=== PATIENT | male | born 1955 | race Caucasian/White ===

== ENCOUNTER 2019-09-02 20:00 | Inpatient (IN) | payer OTHER ==
[~2019-09-02] VITALS: Ht 180.3 cm; Wt 68.0 kg
--- NOTE | 2019-09-02 20:15 | NUR ---
[employer] AND [employer] UNDER CUSTODY FOR AMS , POSSIBLE DRUG OD.
--- NOTE | 2019-09-02 20:39 | NUR ---
ACCUCHECK-95. ERMD MADE AWARE
[2019-09-02] MEDS ORDERED: NALOXONE PREFILLED SYRINGE 2 MG/2 ML SYRINGE ONE ×2 (20:40→22:14)
--- NOTE | 2019-09-02 20:51 | NUR ---
URINE COLLECTED AND SENT TO THE LAB
--- NOTE | 2019-09-02 20:51 | NUR ---
X RAY AT THE BED SIDE
[2019-09-02] MEDS ORDERED: NALOXONE HCL 0.4 MG/ML AMPUL IV ONE ×2 (21:00→22:00)
[2019-09-02 21:03] LABS: APPEARANCE,URINE Clear (CLEAR); BILIRUBIN,URINE Negative (NEGATIVE); BLOOD, URINE Moderate Ery/uL (NEGATIVE); COLOR,URINE Yellow (YELLOW); KETONES,URINE Negative (NEGATIVE); LEUKOCYTE ESTERASE ,URINE Negative (NEGATIVE); NITRITE, URINE Negative (NEGATIVE); PH,URINE 7.5 (5.0-8.0); PROTEIN,URINE 30 mg/dl (NEGATIVE); UGLUCOSE 250 MG/DL mg/dL (NEGATIVE)
[2019-09-02 21:07] LABS: BACTERIA,URINE None seen /HPF (None Seen); SQUAMOUS EPITHELIAL CELL,UR Few /HPF (None Seen); WBC,URINE 0-2 /HPF (0-3)
--- NOTE | 2019-09-02 21:11 | NUR ---
LAB AT THE BED SIDE TO DRAW BLOOD
--- NOTE | 2019-09-02 21:22 | NUR ---
PT IN EBD SLEEPING, RESPONSIVE TO PAIN, REMAINED W/ [employer] AND CLOSE OBSERVATION. ON HEART MONITOR,
[2019-09-02 21:25] LABS: BASOPHILS % (AUTO) 0.3 % (0.0-2.0); EOSINOPHILS % (AUTO) 0.1 % (0.0-6.0); HEMATOCRIT 43 % (39-51); HEMOGLOBIN 13.9 g/dL (13.5-17.5); LYMPHOCYTES % (AUTO) 8.5 % (20.0-44.0); MEAN CORPUSCULAR HGB CONC 32 g/dl (31.0-36.0); MEAN CORPUSCULAR VOLUME 97 fL (80-96); MONOCYTES # (AUTO) 0.6 /CMM (0.1-1.30); MONOCYTES % (AUTO) 5.5 % (2.0-12.0); NEUTROPHILS # (AUTO) 10.1 /CMM (1.8-8.9); NEUTROPHILS % (AUTO) 85.6 % (43.0-81.0); PLATELET COUNT (AUTO) 332 /CMM (150-450); RED BLOOD CELL COUNT(AUTO) 4.43 MIL/uL (4.5-6.0); WHITE BLOOD COUNT (AUTO) 11.8 K/uL (4.3-11.0)
[2019-09-02 21:38] LABS: CALCIUM, SERUM 9.2 mg/dL (8.5-10.1); CARBON DIOXIDE 29 mmol/L (21-32); CHLORIDE 103 mmol/L (98-107); CREATININE 1.2 mg/dL (0.6-1.3); GLUCOSE 102 mg/dL (74-106); POTASSIUM 4.1 mmol/L (3.5-5.1); SODIUM SERUM 139 mmol/L (136-145); UREA NITROGEN, BLOOD 23 mg/dL (7-18)
[2019-09-02 21:44] LABS: ACETAMINOPHEN 0 ug/ml (10-30); ALANINE AMINOTRANSFERASE 47 U/L (12-78); ALBUMIN 3.5 g/dL (3.4-5.0); ALCOHOL, BLOOD < 3 mg/dL (0-0); ALKALINE PHOSPHATASE 120 U/L (46-116); ASPARTATE AMINOTRANSFERASE 115 U/L (15-37); BILIRUBIN,DIRECT 0.1 mg/dL (0.0-0.2); BILIRUBIN,TOTAL 0.4 mg/dL (0.2-1.0); SALICYLATE 1.2 mg/dL (2.8-20.0); TOTAL PROTEIN, SERUM 7.2 g/dL (6.4-8.2)
--- NOTE | 2019-09-02 23:02 | NUR ---
BED ASSIGNMENT 322-2
--- NOTE | 2019-09-02 23:14 | NUR ---
REPORT GIVEN TO GARRISON
--- NOTE | 2019-09-02 23:56 | NUR ---
PT WAS TRANSFERRED TO THE FLOOR IN STABLE CONDITION.
[2019-09-03] VITALS: BP 165/109
[2019-09-03] MEDS ORDERED: ONDANSETRON HCL/PF 4 MG/2 ML VIAL IVP PRN
[2019-09-03] MEDS ORDERED: Z GUARD REMEDY 2 OZ OINT TP PRN
[2019-09-03] MEDS ORDERED: MAGNESIUM HYDROXIDE 30 ML UDC PO PRN
[2019-09-03] MEDS ORDERED: hydrALAZINE HCL IV 20 MG VIAL IV PRN
[2019-09-03] MEDS ORDERED: MAG HYDROX/AL HYDROX/SIMETH 30 ML UDC PO PRN
[2019-09-03] MEDS ORDERED: ACETAMINOPHEN 325 MG TABLET PO PRN
--- NOTE | 2019-09-03 | NUR ---
[facility] CARDIAC CATH LAB MANAGER NOTES Received this patient 64 year-old male from ER via gurney accompanied by 1 ER staff and 2 police officers. Admitted to [facility] 322-2 due to rhabdomylosis and overdose under custody. Transferred to bed comfortably. Patient responsive to sternal rub only. On RA, no SOB/respiratory distress noted, saturating well at RA. No s/sx of discomfort noted at this time. Admission orders noted and carried out. Patient on bed clean, dry and comfortable. R hand cuffed to bed, police officers at bedside. Will continue to monitor accordingly.
[2019-09-03 00:30] VITALS: BP 165/109
[2019-09-03] MEDS: IV NS 0.9% 1,000 ML IV PRN ×3 (00:30→21:03)
[2019-09-03] MEDS: ENOXAPARIN SODIUM 40 MG/0.4 ML DISP.SYRIN SQ SCH ×2 (00:37→21:00)
--- NOTE | 2019-09-03 02:42 | NUR ---
MS RN NOTES Rechecked BP - 147/103mmHg. Patient asleep, responsive to sternal rub. No s/sx of discomfort noted at this time.
--- NOTE | 2019-09-03 05:51 | NUR ---
MS RN NOTES Patient fully awake. Able to recall some information. Patient claimed he was not aware of what happened why he was brought into the hospital. Offered fluids to patient, able to tolerate well. Notified household appliances salesperson MD with diet order changed from NPO to now regular diet. Noted and carried out. Offered snacks to patient.
--- NOTE | 2019-09-03 06:39 | NUR ---
MS RN CLOSING NOTES Patient asleep, easily awaken. On RA, no SOB/respiratory distress noted. Afebrile the whole shift, no new unusualities noted. All nursing needs attended, due meds given as ordered. Patient able to reposition self independently. Kept on bed clean, dry and comfortable. With 2 police officers at bedside. Patient's R hand cuffed to bedrails. On fall and aspiration precautions. Call light within easy reach. Endorsed.
[2019-09-03] MEDS: PANTOPRAZOLE 40 MG TABLET.DR PO SCH (07:30)
[2019-09-03 07:42] LABS: BASOPHILS # (AUTO) 0.1 /CMM (0.0-0.2); BASOPHILS % (AUTO) 0.7 % (0.0-2.0); EOSINOPHILS % (AUTO) 0.8 % (0.0-6.0); HEMATOCRIT 46 % (39-51); HEMOGLOBIN 15.3 g/dL (13.5-17.5); LYMPHOCYTES % (AUTO) 18.9 % (20.0-44.0); MEAN CORPUSCULAR HGB CONC 33 g/dl (31.0-36.0); MEAN CORPUSCULAR VOLUME 96 fL (80-96); MONOCYTES # (AUTO) 0.7 /CMM (0.1-1.30); MONOCYTES % (AUTO) 6.9 % (2.0-12.0); NEUTROPHILS # (AUTO) 7.6 /CMM (1.8-8.9); NEUTROPHILS % (AUTO) 72.7 % (43.0-81.0); PLATELET COUNT (AUTO) 332 /CMM (150-450); RED BLOOD CELL COUNT(AUTO) 4.78 MIL/uL (4.5-6.0); WHITE BLOOD COUNT (AUTO) 10.4 K/uL (4.3-11.0)
--- NOTE | 2019-09-03 07:55 | NUR ---
ms rn opening notes Patient received on room air, no sob noted, patient denies pain at this time. A/O x4 and is awake and answering questions now. Des with patient bedside at all times. Able to eat and swallow at this time. R wrist 19 with NS @ 150 ml per hour. Bed at the lowest setting, call light within reach, side rails up x2.
[2019-09-03 08:00] VITALS: BP 159/91
--- NOTE | 2019-09-03 09:41 | NUR ---
WOUND CARE CONSULT: PT PRESENTS WITH LEFT BACK ABRASION AND SURROUNDING DISCOLORATION, PRESENT ON ADMISSION. RECOMMENDATIONS MADE FOR SKIN PROTECTION AND WOUND CARE. DISCUSSED WITH NURSING STAFF. PT IS CONTINENT AND INDEPENDENT WITH BED MOBILITY. LAW ENFORCEMENT OFFICERS AT BEDSIDE. CURRENT MALIA SCORE IS 20. Addendum: 09/03/19 at 0942 by WILFRED CAMPOS WNDNU Amended: Links added.
[2019-09-03 10:03] LABS: ALBUMIN 2.9 g/dL (3.4-5.0); BILIRUBIN,TOTAL 0.5 mg/dL (0.2-1.0); CALCIUM, SERUM 8.5 mg/dL (8.5-10.1); CREATININE 1.3 mg/dL (0.6-1.3); MAGNESIUM 2.1 mg/dL (1.8-2.4); POTASSIUM 3.7 mmol/L (3.5-5.1); THYROID STIMULATING HORMONE 1.163 uIU/mL (0.358-3.74); TOTAL PROTEIN, SERUM 6.6 g/dL (6.4-8.2)
[2019-09-03 10:16] LABS: PHOSPHORUS 3.7 mg/dL (2.5-4.9)
[2019-09-03] MEDS ORDERED: LANS30CA56 PO (10:55)
[2019-09-03] MEDS ORDERED: CLOP75TA15 PO (10:55)
[2019-09-03] MEDS ORDERED: FLUT1DIS IH (10:55)
[2019-09-03] MEDS ORDERED: ZOLP5TAB8 PO (10:55)
[2019-09-03] MEDS ORDERED: VARD20TA31 PO (10:55)
[2019-09-03] MEDS ORDERED: LEVA15HF4 IH (10:55)
[2019-09-03] MEDS ORDERED: DOLU1TAB2 PO (10:55)
[2019-09-03] MEDS ORDERED: IBUP-1957 PO (10:59)
[2019-09-03] MEDS ORDERED: ALPR1TAB7 PO (10:59)
[2019-09-03 16:00] VITALS: BP 152/96
[2019-09-03] MEDS ORDERED: IV NS 0.9% 1,000 ML IV STA (16:31)
[2019-09-03] MEDS: LORAZEPAM INJ 2 MG/ML VIAL IV PRN ×2 (16:44→23:28)
--- NOTE | 2019-09-03 18:13 | NUR ---
rn closing notes Patient remains on room air, no sob noted, a/o x4. Patient denies pain at this time, and has laundry housekeeper with him bedside at all times. IV hydration ongoing, R wrist #18 @ 150 ml per hour of NS. Patient asleep but easily awakened at this time. Bed at the lowest setting, call light within reach, side rails up x2. Will give report to NOC RN for FREDRICK bedside.
--- NOTE | 2019-09-03 19:15 | NUR ---
RN PM OPENING NOTES BEDSIDE REPORT RECIEVED FROM COLLIN RN. PATIENT IS IN CUSTODY WITH OFFICERS AT THE BEDSIDE. PT ON RA IN NO APPARENT DISTRESS. PT DENIES PAIN. IV HYDRATION ONGOING TO RIGHT WRIST 18 GUAGE FINISHING UP BOLUS PER ORDERS AT 250 ML PER HOUR. TO RESUME AT NS AT 150 ML PER HOUR AFTER. BED LOW CALL LIGHT IN REACH SRX2
--- NOTE | 2019-09-03 19:53 | NUR ---
A DR. HARRINGTON FROM [facility] SENT RECENT MEDICAL RECORDS PER NOTES HIS CALL BACK NUMBER IS [phone] EXT 1 RECORDS ADDED TO CHART FOR RECORDS.
[2019-09-03 20:00] VITALS: BP 136/87
--- NOTE | 2019-09-03 21:04 | NUR ---
PATIENT OFFERED LOVENOX ORDERED PATIENT REFUSED. MEDICINE REVIEWED ORDERED MEDICATION WITH PATIENT AND ITS USE TO PREVENT BLOOD CLOTS WHILE HOSPITALIZED. REVIEWED THAT HE IS AT RISK A PATIENT. PATIENT REFUSING MEDICINE STATES, "NO I DON'T WANT ANY OF THAT. NO THANK YOU."
[2019-09-03] MEDS ORDERED: ALBUTEROL FS 2.5 MG/0.5 ML VIAL.NEB NEB PRN ×2 (23:15→23:30)
--- NOTE | 2019-09-03 23:28 | NUR ---
pt anxious, sob, new breathing treatment ordrs. pt sob has upper rep wheezing audible sitting at bedside with hands on knees states "i am having trouble breathing." maximiliano contacted shop director/md and new order for duoneb treatments recieved. rt informed states hew ill be here soon to see patient. patient is still anxious. spo2 is 95% rr is 24. patient is very anxious. pt given ativan as ordered prn per his request.
[2019-09-03] MEDS: IPRATROPIUM NEB FS 0.5 MG/2.5 ML AMPUL.NEB NEB SCH (23:52)
[2019-09-04] MEDS: IPRATROPIUM NEB FS 0.5 MG/2.5 ML AMPUL.NEB NEB SCH ×6 (03:28→23:07)
[2019-09-04] MEDS: IV NS 0.9% 1,000 ML IV PRN ×3 (06:21→22:52)
[2019-09-04 07:27] LABS: BASOPHILS # (AUTO) 0.1 /CMM (0.0-0.2); BASOPHILS % (AUTO) 1.1 % (0.0-2.0); EOSINOPHILS % (AUTO) 2.2 % (0.0-6.0); HEMATOCRIT 43 % (39-51); HEMOGLOBIN 13.8 g/dL (13.5-17.5); LYMPHOCYTES # (AUTO) 2.3 /CMM (0.8-4.8); LYMPHOCYTES % (AUTO) 24.8 % (20.0-44.0); MEAN CORPUSCULAR HGB CONC 33 g/dl (31.0-36.0); MEAN CORPUSCULAR VOLUME 97 fL (80-96); MONOCYTES # (AUTO) 0.9 /CMM (0.1-1.30); MONOCYTES % (AUTO) 9.6 % (2.0-12.0); NEUTROPHILS # (AUTO) 5.7 /CMM (1.8-8.9); NEUTROPHILS % (AUTO) 62.3 % (43.0-81.0); PLATELET COUNT (AUTO) 289 /CMM (150-450); RED BLOOD CELL COUNT(AUTO) 4.41 MIL/uL (4.5-6.0); WHITE BLOOD COUNT (AUTO) 9.2 K/uL (4.3-11.0)
[2019-09-04 07:43] LABS: CALCIUM, SERUM 7.8 mg/dL (8.5-10.1); CREATININE 1.2 mg/dL (0.6-1.3); PHOSPHORUS 3.3 mg/dL (2.5-4.9); POTASSIUM 4.2 mmol/L (3.5-5.1)
[2019-09-04 08:00] VITALS: BP 145/88
[2019-09-04] MEDS: PANTOPRAZOLE 40 MG TABLET.DR PO SCH (08:15)
[2019-09-04] MEDS ORDERED: IV NS 0.9% 1,000 ML IV STA (10:18)
[2019-09-04] MEDS ORDERED: Medication Not On Formulary EA (Levalbuterol Tartrate (Xopenex Hfa) 2 PUFF) IH PRN (15:30)
[2019-09-04] MEDS ORDERED: IBUPROFEN 400 MG TABLET PO PRN (15:30)
[2019-09-04] MEDS ORDERED: ZOLPIDEM TARTRATE 5 MG TABLET PO PRN (15:30)
[2019-09-04] MEDS ORDERED: VARDENAFIL HCL 20 MG PO PRN (15:30)
[2019-09-04] MEDS ORDERED: ALPRAZOLAM 1 MG TABLET PO PRN (15:30)
[2019-09-04 16:00] VITALS: BP 147/86
--- NOTE | 2019-09-04 18:17 | NUR ---
rn closing notes Patient remains on room air, no sob noted, a/o x3 at this time. R wrist 18 and R hand 22 gauge present. Patient takes medication and is able to ear well. With full decator operator officers at all times. Bed at the lowest setting, call light within reach, side rails up x2. Will give report to NOC RN for FREDRICK bedside.
[2019-09-04] MEDS: LORAZEPAM INJ 2 MG/ML VIAL IV PRN (18:29)
[2019-09-04 20:00] VITALS: BP 155/95
[2019-09-04] MEDS: ENOXAPARIN SODIUM 40 MG/0.4 ML DISP.SYRIN SQ SCH (21:08)
[2019-09-05] MEDS: IPRATROPIUM NEB FS 0.5 MG/2.5 ML AMPUL.NEB NEB SCH ×3 (02:37→11:30)
[2019-09-05] MEDS: IV NS 0.9% 1,000 ML IV PRN (05:38)
[2019-09-05] MEDS ORDERED: Medication Not On Formulary EA (Lansoprazole 30 MG) PO SCH (07:30)
--- NOTE | 2019-09-05 07:31 | NUR ---
RN OPENING NOTE PT RECEIVED IN BED AT LOWEST AND LOCKED WITH SIDE RAILS UPX2, A/O X3 BREATHING EVEN AND UNLABORED WITH NO S/S OF ANY DISTRESS OR PAIN AT THIS TIME, IV IS PATENT AND INTACT, IMPLEMENTATION SPECIALIST PAYROLL AT BEDSIDE, SAFETY PRECAUTIONS IN PLACE, CALL LIGHT IN REACH, WILL MONITOR ACCORDINGLY
[2019-09-05 07:54] LABS: BASOPHILS # (AUTO) 0.1 /CMM (0.0-0.2); EOSINOPHILS % (AUTO) 2.5 % (0.0-6.0); HEMATOCRIT 38 % (39-51); HEMOGLOBIN 12.6 g/dL (13.5-17.5); LYMPHOCYTES % (AUTO) 23.3 % (20.0-44.0); MEAN CORPUSCULAR HGB CONC 33 g/dl (31.0-36.0); MEAN CORPUSCULAR VOLUME 95 fL (80-96); MONOCYTES # (AUTO) 0.6 /CMM (0.1-1.30); MONOCYTES % (AUTO) 7.3 % (2.0-12.0); NEUTROPHILS # (AUTO) 5.7 /CMM (1.8-8.9); NEUTROPHILS % (AUTO) 65.9 % (43.0-81.0); PLATELET COUNT (AUTO) 280 /CMM (150-450); WHITE BLOOD COUNT (AUTO) 8.7 K/uL (4.3-11.0)
[2019-09-05 08:00] VITALS: BP 148/95
[2019-09-05 08:20] LABS: CALCIUM, SERUM 7.7 mg/dL (8.5-10.1); CREATININE 0.9 mg/dL (0.6-1.3); MAGNESIUM 1.9 mg/dL (1.8-2.4); PHOSPHORUS 2.3 mg/dL (2.5-4.9)
[2019-09-05] MEDS: PANTOPRAZOLE 40 MG TABLET.DR PO SCH (08:21)
[2019-09-05] MEDS ORDERED: CLOPIDOGREL BISULFATE 75 MG TABLET PO SCH (09:00)
--- NOTE | 2019-09-05 12:35 | NUR ---
DISCHARGE NOTE PT WAS DISCHARGED AT THIS TIME TO LONG TERM IN CUSTODY OF WINDOW AND SIDING CRAFTSMAN OFFICERS. HE LEFT IN STABLE CONDITION A/O X3 BREATHING EVEN AND UNLABORED WITH NO DISTRESS OR PAIN, IV AND ID BAND WERE REMOVED. PT REFUSED FOR PHOTOS OF SKIN TO BE TAKEN. ALL DISCHARGE PAPERWORK, EXITCARE, AND BELONGING LIST WERE SIGNED, DISCUSSED, AND HANDED TO THE PATIENT AND WINDOW AND SIDING CRAFTSMAN OFFICERS. ALL NEEDS WERE ATTENDED TO DURING HIS STAY, PT LEFT AT THIS TIME WITH WINDOW AND SIDING CRAFTSMAN OFFICERS IN THEIR PATROL CAR.
[2019-09-09 14:08] LABS: *HIV-1 log10 RNA 4.93 (.)
== END 2019-09-05 12:35 | DRG 917 ==
LOC: EDSEX 20:00 → ER 20:10 → MED 23:12
PROVIDERS: ADMIT Nurse Practitioner Acute Care; ATTEND Registered Nurse
DX: T40.601A Poisoning by unspecified narcotics, accidental (unintentional), initial encounter (principal); G92 Toxic encephalopathy; M62.82 Rhabdomyolysis; Y92.9 Unspecified place or not applicable; F19.10 Other psychoactive substance abuse, uncomplicated; D72.829 Elevated white blood cell count, unspecified; J32.0 Chronic maxillary sinusitis; Z91.19 Patient's noncompliance with other medical treatment and regimen; Y90.0 Blood alcohol level of less than 20 mg/100 ml; F10.10 Alcohol abuse, uncomplicated; T43.621A Poisoning by amphetamines, accidental (unintentional), initial encounter
CPT/HCPCS: 36415; 70450-TC; 71045-TC; 80048-TC; 80053-TC; 80061-TC; 80076-TC; 80305; 81000-TC; 82550-TC; 82962-TC; 83735-TC; 84100-TC; 84443-TC; 85025-TC; 87081-TC; 87536; G0378; G0480; J0360; J1650; J2060; J2310; J7030